=== PATIENT | male | born 1975 | race Caucasian/White ===

== ENCOUNTER 2017-06-24 07:46 | Inpatient (IN) | payer OTHER ==
[2017-06-24 08:01] LABS: ADD MAN DIFF? NO
[2017-06-24 08:06] LABS: WHITE BLOOD COUNT 10.6 10^3/ul (4.8-10.8)
[2017-06-24 08:06] LABS: BASOPHILS % 0.3 % (0.0-2.0); EOSINOPHILS % 0.1 % (0.0-7.0); HEMATOCRIT 40.2 % (42.0-52.0); HEMOGLOBIN 13.8 g/dl (14.0-18.0); LYMPHOCYTES # 2.3 10^3/ul (0.8-2.9); LYMPHOCYTES % 21.9 % (15.0-51.0); MEAN CORPUSCULAR HEMOGLOBIN 28.9 pg (29.0-33.0); MEAN CORPUSCULAR HGB CONC 34.3 g/dl (32.0-37.0); MEAN CORPUSCULAR VOLUME 84.1 fl (82.0-101.0); MEAN PLATELET VOLUME 9.5 fl (7.4-10.4); MONOCYTE # 0.5 10^3/ul (0.3-0.9); NEUTROPHIL # 7.7 10^3/ul (1.6-7.5); NEUTROPHILS % 72.5 % (39.0-77.0); PLATELET COUNT 245 10^3/UL (140-415); RED BLOOD COUNT 4.78 10^6/ul (4.70-6.10); RED CELL DISTRIBUTION WIDTH 13.2 % (11.5-14.5)
[2017-06-24] MEDS ORDERED: MIDAZOLAM 1 MG/ML 2 ML INJ (08:12)
[2017-06-24] MEDS ORDERED: FENTAnyl 50 MCG/ML VIAL (08:12)
[2017-06-24 08:27] LABS: ALANINE AMINOTRANSFERASE 34 IU/L (13-69); ALBUMIN 4.4 g/dl (3.3-4.9); ALBUMIN/GLOBULIN RATIO 1.15; ALKALINE PHOSPHATASE 91 IU/L (42-121); ANION GAP 15 (8-16); ASPARTATE AMINO TRANSFERASE 76 IU/L (15-46); BILIRUBIN,INDIRECT 0.4 mg/dl (0-1.1); BILIRUBIN,TOTAL 0.4 mg/dl (0.2-1.3); BLOOD UREA NITROGEN 13 mg/dl (7-20); CALCIUM 8.7 mg/dl (8.4-10.2); CARBON DIOXIDE 25 mmol/L (21-31); CHLORIDE 105 mmol/L (97-110); CREATINE KINASE 559 IU/L (23-200); CREATININE 0.68 mg/dl (0.61-1.24); GLUCOSE 142 mg/dl (70-220); POTASSIUM 4.3 mmol/L (3.5-5.1); SODIUM 141 mmol/L (135-144); TOTAL PROTEIN 8.2 g/dl (6.1-8.1)
[2017-06-24 08:32] LABS: INR 1.09; PROTIME 14.3 Sec (11.9-14.9); PT RATIO 1.1
[2017-06-24 08:36] LABS: B-TYPE NATRIURETIC PEPTIDE 76 PG/ML (0-125); CK INDEX 5.1
[2017-06-24] MEDS ORDERED: VERAPAMIL 5 MG INJ (08:36)
[2017-06-24] MEDS ORDERED: TICAGRELOR 90 MG TABLET (08:39)
[2017-06-24 09:12] LABS: PARTIAL THROMBOPLASTIN TIME > 180.0 Sec (25.0-35.0)
[2017-06-24] MEDS ORDERED: HEPARIN 1000 UNITS/ML 10 ML INJ (09:13)
[2017-06-24] MEDS ORDERED: LIDOCAINE 1% (MDV) 20 ML INJ (09:13)
[2017-06-24] MEDS ORDERED: NS (09:14)
[2017-06-24] MEDS ORDERED: IOHEXOL 350MG/ML 50 ML BTL (09:14)
[2017-06-24] MEDS ORDERED: HEPARIN (09:14)
[2017-06-24] MEDS ORDERED: IODIXANOL LOCM 100 ML BTL (09:14)
[2017-06-24] MEDS ORDERED: NITROGLYCERIN (IC) 100 MCG/ML INJ (09:17)
[2017-06-24] MEDS ORDERED: EPTIFIBATIDE 20 ML (09:17)
[2017-06-24] MEDS ORDERED: EPTIFIBATIDE 100 ML IV (09:17)
[2017-06-24] MEDS ORDERED: AL HYDROX/MG HYDROX/SIMETH 30 ML CUP PO (10:30)
[2017-06-24] MEDS ORDERED: ONDANSETRON 4 MG INJ IV ×2 (10:30→12:00)
[2017-06-24] MEDS ORDERED: morphine 2 MG INJ IV ×2 (10:30→12:00)
[2017-06-24] MEDS ORDERED: ACETAMINOPHEN 325 MG TAB PO ×2 (10:30→12:00)
[2017-06-24] MEDS ORDERED: NITROGLYCERIN (SL) 0.4 MG TAB SL (10:30)
[2017-06-24] MEDS ORDERED: OXYCODONE/ACETAMINOPHEN (5/325) TAB PO (10:30)
[2017-06-24] MEDS: SOD CHLORIDE 0.9% 1,000 ML IV (10:44)
[2017-06-24] MEDS: EPTIFIBATIDE 100 ML IV (11:30)
[2017-06-24] MEDS: PANTOPRAZOLE 40 MG INJ IV (12:00)
[2017-06-24] MEDS ORDERED: ACETAMINOPHEN 650 MG SUPP PR (12:00)
[2017-06-24] MEDS ORDERED: BISACODYL 10 MG SUPP PR (12:00)
[2017-06-24] MEDS ORDERED: HYDROCODONE/APAP (5/325) TAB PO ×2 (12:00)
[2017-06-24] MEDS ORDERED: NACL 0.9% 3 ML SYG IV (12:00)
[2017-06-24] MEDS ORDERED: MAGNESIUM HYDROXIDE 30ML CUP PO (12:00)
[2017-06-24] MEDS ORDERED: DOCUSATE SODIUM 100 MG CAP PO (12:00)
[2017-06-24] MEDS: PANTOPRAZOLE (EC) 40 MG TAB PO (12:24)
[2017-06-24 12:33] LABS: CREATINE KINASE 1414 IU/L (23-200)
[2017-06-24 12:46] LABS: CK INDEX 5.4
[2017-06-24 14:30] LABS: CREATINE KINASE 1445 IU/L (23-200)
[2017-06-24 14:42] LABS: CK INDEX 5.3
[2017-06-24 17:35] LABS: CREATINE KINASE 1437 IU/L (23-200)
[2017-06-24 17:49] LABS: CK INDEX 5.6
[2017-06-24] MEDS: DOCUSATE SODIUM 100 MG CAP PO (20:44)
[2017-06-24] MEDS: ATORVASTATIN 80 MG TAB PO (20:44)
[2017-06-24] MEDS: TICAGRELOR 90 MG TABLET PO (20:50)
[2017-06-25 05:30] LABS: ADD MAN DIFF? NO
[2017-06-25 05:33] LABS: BASOPHILS % 0.2 % (0.0-2.0); EOSINOPHILS % 0.2 % (0.0-7.0); HEMATOCRIT 36.7 % (42.0-52.0); HEMOGLOBIN 12.2 g/dl (14.0-18.0); LYMPHOCYTES # 2.7 10^3/ul (0.8-2.9); LYMPHOCYTES % 24.1 % (15.0-51.0); MEAN CORPUSCULAR HEMOGLOBIN 28.8 pg (29.0-33.0); MEAN CORPUSCULAR HGB CONC 33.2 g/dl (32.0-37.0); MEAN CORPUSCULAR VOLUME 86.6 fl (82.0-101.0); MEAN PLATELET VOLUME 9.3 fl (7.4-10.4); MONOCYTES % 8.8 % (0.0-11.0); NEUTROPHIL # 7.3 10^3/ul (1.6-7.5); NEUTROPHILS % 66.3 % (39.0-77.0); PLATELET COUNT 222 10^3/UL (140-415); RED BLOOD COUNT 4.24 10^6/ul (4.70-6.10); RED CELL DISTRIBUTION WIDTH 13.4 % (11.5-14.5)
[2017-06-25 06:07] LABS: PHOSPHORUS 3.1 mg/dl (2.5-4.9)
[2017-06-25 06:11] LABS: CREATINE KINASE 1316 IU/L (23-200)
[2017-06-25 06:17] LABS: B-TYPE NATRIURETIC PEPTIDE 1180 PG/ML (0-125)
[2017-06-25 06:25] LABS: FREE THYROXINE INDEX (Calc) 2.01 ug/ml (0.65-3.89); T3 UPTAKE 30.5 % (23.5-40.5); T4 (THYROXINE) 6.6 ug/dl (5.5-11.0)
[2017-06-25 06:27] LABS: FREE T4 (FREE THYROXINE) 0.71 ng/dl (0.64-1.79)
[2017-06-25 06:46] LABS: ALANINE AMINOTRANSFERASE 53 IU/L (13-69); ALBUMIN 3.9 g/dl (3.3-4.9); ALBUMIN/GLOBULIN RATIO 1.25; ALKALINE PHOSPHATASE 67 IU/L (42-121); ANION GAP 12 (8-16); ASPARTATE AMINO TRANSFERASE 203 IU/L (15-46); BILIRUBIN,INDIRECT 0.9 mg/dl (0-1.1); BILIRUBIN,TOTAL 0.9 mg/dl (0.2-1.3); BLOOD UREA NITROGEN 14 mg/dl (7-20); CALCIUM 8.7 mg/dl (8.4-10.2); CARBON DIOXIDE 27 mmol/L (21-31); CHLORIDE 104 mmol/L (97-110); CHOL/HDL RATIO 5.5 RATIO; CHOLESTEROL 183 mg/dl (100-200); CREATININE 0.74 mg/dl (0.61-1.24); GLUCOSE 105 mg/dl (70-220); HDL CHOLESTEROL 33 mg/dl (27-67); LDL CHOLESTEROL,CALCULATED 80 mg/dl; MAGNESIUM 1.8 mg/dl (1.7-2.5); POTASSIUM 4.3 mmol/L (3.5-5.1); SODIUM 139 mmol/L (135-144); TRIGLYCERIDES 348 mg/dl (0-149)
[2017-06-25] MEDS: PANTOPRAZOLE 40 MG INJ IV (06:49)
[2017-06-25 08:07] LABS: HEMOGLOBIN A1C 5.5 % (0-5.9)
[2017-06-25] MEDS: DOCUSATE SODIUM 100 MG CAP PO ×2 (10:18→20:14)
[2017-06-25] MEDS: ASPIRIN (EC) 81 MG TAB PO (10:20)
[2017-06-25] MEDS: TICAGRELOR 90 MG TABLET PO ×2 (10:21→20:15)
[2017-06-25] MEDS: MAGNESIUM SULFATE 2 GM/50 ML 50 ML IVPB (10:22)
[2017-06-25 10:45] LABS: IRON 46 ug/dl (35-150)
[2017-06-25 10:55] LABS: % IRON SATURATION 12 % SAT (22-52); TOTAL IRON BINDING CAPACITY 374 ug/dl (241-421)
[2017-06-25] MEDS: ATORVASTATIN 80 MG TAB PO (20:14)
[2017-06-26] MEDS: PANTOPRAZOLE 40 MG INJ IV (05:57)
[2017-06-26 06:09] LABS: ADD MAN DIFF? NO
[2017-06-26 06:20] LABS: BASOPHILS % 0.4 % (0.0-2.0); EOSINOPHILS % 0.4 % (0.0-7.0); HEMATOCRIT 39.8 % (42.0-52.0); HEMOGLOBIN 13.7 g/dl (14.0-18.0); LYMPHOCYTES # 2.6 10^3/ul (0.8-2.9); LYMPHOCYTES % 27.1 % (15.0-51.0); MEAN CORPUSCULAR HEMOGLOBIN 29.3 pg (29.0-33.0); MEAN CORPUSCULAR HGB CONC 34.4 g/dl (32.0-37.0); MEAN CORPUSCULAR VOLUME 85.2 fl (82.0-101.0); MEAN PLATELET VOLUME 9.1 fl (7.4-10.4); MONOCYTE # 0.9 10^3/ul (0.3-0.9); MONOCYTES % 9.2 % (0.0-11.0); NEUTROPHIL # 5.9 10^3/ul (1.6-7.5); NEUTROPHILS % 62.6 % (39.0-77.0); PLATELET COUNT 240 10^3/UL (140-415); RED BLOOD COUNT 4.67 10^6/ul (4.70-6.10); RED CELL DISTRIBUTION WIDTH 13.6 % (11.5-14.5)
[2017-06-26 06:20] LABS: WHITE BLOOD COUNT 9.5 10^3/ul (4.8-10.8)
[2017-06-26 06:28] LABS: CREATINE KINASE 504 IU/L (23-200)
[2017-06-26 06:34] LABS: ALANINE AMINOTRANSFERASE 46 IU/L (13-69); ALBUMIN 4.3 g/dl (3.3-4.9); ALBUMIN/GLOBULIN RATIO 1.16; ALKALINE PHOSPHATASE 82 IU/L (42-121); ANION GAP 14 (8-16); ASPARTATE AMINO TRANSFERASE 104 IU/L (15-46); BILIRUBIN,INDIRECT 1.4 mg/dl (0-1.1); BILIRUBIN,TOTAL 1.4 mg/dl (0.2-1.3); BLOOD UREA NITROGEN 16 mg/dl (7-20); CARBON DIOXIDE 27 mmol/L (21-31); CHLORIDE 107 mmol/L (97-110); CREATININE 0.86 mg/dl (0.61-1.24); GLUCOSE 105 mg/dl (70-220); MAGNESIUM 2.2 mg/dl (1.7-2.5); POTASSIUM 4.2 mmol/L (3.5-5.1); SODIUM 144 mmol/L (135-144)
[2017-06-26 06:42] LABS: CK INDEX 1.3
[2017-06-26 06:48] LABS: CK-MB 6.46 ng/ml (0.0-2.4)
[2017-06-26] MEDS: ASPIRIN (EC) 81 MG TAB PO (08:57)
[2017-06-26] MEDS: DOCUSATE SODIUM 100 MG CAP PO ×2 (08:57→21:28)
[2017-06-26] MEDS: TICAGRELOR 90 MG TABLET PO ×2 (08:59→21:35)
[2017-06-26] MEDS: ATORVASTATIN 80 MG TAB PO (21:28)
[2017-06-27] MEDS: PANTOPRAZOLE 40 MG INJ IV (05:59)
[2017-06-27] MEDS: ASPIRIN (EC) 81 MG TAB PO (08:51)
[2017-06-27] MEDS: DOCUSATE SODIUM 100 MG CAP PO (08:52)
[2017-06-27] MEDS: TICAGRELOR 90 MG TABLET PO (08:53)
[2017-06-27] MEDS: INFLUENZA VIRUS VACCINE 0.5 ML (DISPENSING) IM* (09:55)
== END 2017-06-27 13:30 | disposition home or self-care (01) | DRG 247 ==
LOC: TEL 06-25 15:53 → E/R 07:46 → ICU 10:59
PROC: 027036Z Dilation of Coronary Artery, One Artery with Three Drug-eluting Intraluminal Devices, Percutaneous Approach (ICD-10-PCS; principal; 2017-06-24 08:00)
PROC: 02C03ZZ Extirpation of Matter from Coronary Artery, One Artery, Percutaneous Approach (ICD-10-PCS; 2017-06-24 08:00)
PROC: 3E033PZ Introduction of Platelet Inhibitor into Peripheral Vein, Percutaneous Approach (ICD-10-PCS; 2017-06-24 08:00)
PROC: 4A023N7 Measurement of Cardiac Sampling and Pressure, Left Heart, Percutaneous Approach (ICD-10-PCS; 2017-06-24 08:00)
PROC: B211YZZ Fluoroscopy of Multiple Coronary Arteries using Other Contrast (ICD-10-PCS; 2017-06-24 08:00)
DX: I21.19 ST elevation (STEMI) myocardial infarction involving other coronary artery of inferior wall (principal); E78.5 Hyperlipidemia, unspecified; E66.9 Obesity, unspecified; Z71.3 Dietary counseling and surveillance; Z68.36 Body mass index [BMI] 36.0-36.9, adult; Z79.82 Long term (current) use of aspirin
CPT/HCPCS: 36415; 71045; 80053; 80061; 82550; 82553; 83036; 83540; 83735; 83880; 84100; 84436; 84439; 84443; 84479; 84484; 85025; 85610; 85730; 87081; 90686; 92973; 93005; 93306; 93458; 99291-25